=== PATIENT | female | born 1980 | race Caucasian/White ===

== ENCOUNTER 2021-01-01 09:35 | Emergency (ER) | payer OTHER ==
[~2021-01-01 09:35] MED LIST: BACTRIM DS TAB1 EACH PO; BENTYL10 MG PO; CETIRIZINE HCL10 MG PO; DESYREL50 MG PO; DOXYCYCLINE MO100 MG PO; FLUTICASONE PRO16 GM; LASIX20 MG PO; LISINOPRIL40 MG PO; MEDROL 4MG DOSEP4 MG PO; MOTRIN600 MG PO; SERTRALINE HCL50 MG PO; SIMVASTATIN20 MG PO; ZOFRAN8 MG PO
[2021-01-01] MEDS ORDERED: PRINIVIL20 MG PO (12:02)
[2021-01-01] MEDS ORDERED: NAPROXEN500 MG PO (12:02)
== END 2021-01-01 12:30 | disposition home or self-care (01) ==
LOC: FER 09:35
DX: M75.102 Unspecified rotator cuff tear or rupture of left shoulder, not specified as traumatic (principal); M19.012 Primary osteoarthritis, left shoulder; I10 Essential (primary) hypertension; Z88.0 Allergy status to penicillin
CPT/HCPCS: 73000

== ENCOUNTER → 2021-01-10 01:40 | Emergency (ER) | payer OTHER | END | disposition EXP | LOC: FER 01:45 | DX: I46.9 Cardiac arrest, cause unspecified (principal) | CPT/HCPCS: 92950; 99285; J0171; J0282; J0610 ==

== ENCOUNTER → 2021-01-10 | Emergency (ER) | payer OTHER ==
[~2021-01-10] MED LIST changes: +NAPROXEN500 MG PO; +PRINIVIL20 MG PO
== END | disposition home or self-care (01) ==
LOC: FER 01:24
DX: I46.9 Cardiac arrest, cause unspecified (principal); Z53.8 Procedure and treatment not carried out for other reasons